=== PATIENT | male | born 1990 | race Caucasian/White ===

== ENCOUNTER 2019-12-05 14:12 | Emergency (ER) | payer OTHER ==
--- NOTE | 2019-12-05 15:31 | UC ---
FLU HPI - HPI Summary HPI Summary: Patient presents to urgent care with 36 hours of body aches, congestion, cough with yellow to brown sputum, congestion, sore throat. Patient also with nausea but no vomiting. Patient did have one episode of diarrhea. Patient did not get the flu vaccine this year. Patient denies sick contacts. Patient works in construction both inside and outside. Patient is not immunocompromised. Patient does not smoke or catrachito. Patient medications and entered in the EMR by the triage nurse reviewed this visit. 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 Onset/Duration: Gradual Onset Severity Currently: Mild Severity Initially: Mild Pain Scale Used: 0-10 Numeric - Allergy/Home Medications Allergies/Adverse Reactions: Allergies Allergy/AdvReac Type Severity Reaction Status Date / Time No Known Allergies Allergy Verified 12/05/19 15:30 Home Medications: Home Medications Acetaminophen [Tylenol Extra Strength] 1 tab PO ONCE 12/05/19 [History Confirmed 12/05/19] Albuterol HFA INHALER* [Ventolin HFA Inhaler*] 2 puff INH Q4H PRN #1 mdi [Rx] Dm/PE/Acetaminophen/Chlorphenr [[place]ha-[place] Plus Cld-Cough Cp] 1 dose PO ONCE 12/05/19 [History Confirmed 12/05/19] Oseltamivir Phosphate [Tamiflu] 75 mg PO BID #10 capsule 12/05/19 [Rx] PMH/Surg Hx/FS Hx/Imm Hx Previously Healthy: Yes - Surgical History Surgical History: None - Family History Known Family History: Positive: Non-Contributory - Social History Occupation: Employed Full-time Lives: With Family Alcohol Use: Rare Substance Use Type: None - Immunization History Most Recent Tetanus Shot: 12/08/12 Review of Systems All Other Systems Reviewed And Are Negative: Yes Constitutional: Positive: Fever Skin: Positive: Negative ENT: Positive: Nasal Discharge, Sinus Congestion, Sinus Pain/Tenderness Respiratory: Positive: Cough Cardiovascular: Positive: Negative Gastrointestinal: Positive: Diarrhea, Nausea Genitourinary: Positive: Negative Motor: Positive: Negative Physical Exam - Summary Physical Exam Summary: Vital Signs Reviewed: Yes A+Ox3, congested Eyes: Conjunctiva Clear, TALA. EOM intact and full ENT: Hearing grossly normal TM x 2 clear, turbinates inflammed and boggy, + PND , mmoist, uvula midline, no exudate, no erythema Neck: Positive: Supple, no LA Respiratory: Positive: No respiratory distress, No accessory muscle use + CTA throughout no w/r, mild intermittent cough Cardiovascular: RRR nl s1, s2 no m/r CBT <2 sec abd soft + BS nt/nd no guarding, no distension Musculoskeletal Exam: CARPENTER x 4 without difficulty Strength Intact, ROM Intact Neurological: Positive: Alert, + sensation throughout Psychological: Positive: Normal Response To examiner Skin: Positive: no rash, no ecchymosis Triage Information Reviewed: Yes Flu Course/Dx - Course Course Of Treatment: Patient presented to urgent care 3 hours of progressive congestion, mild headache, cough with brown sputum, body aches. Patient has acute temperature last night for which he took Tylenol. Patient's taken some [id number] symptomatic medication. Patient at the flu vaccine. Otherwise. On exam vital signs reviewed. Patient does have some congestion postnasal drip and a mild cough. Patient is nontoxic appearing. Patient's insulin is positive. We'll start Tamiflu. Secretion percussion. Motrin Tylenol. Hydrate. Return precautions. Work note. Patient's spouse comfortable and agreeable with plan. - Differential Dx/Diagnosis Provider Diagnosis: Influenza Discharge ED - Sign-Out/Discharge Documenting (check all that apply): Patient Departure All imaging exams completed and their final reports reviewed: No Studies - Discharge Plan Condition: Stable Disposition: HOME Prescriptions: Albuterol HFA INHALER* [Ventolin HFA Inhaler*] 2 puff INH Q4H PRN #1 mdi PRN Reason: wheeze Oseltamivir Phosphate [Tamiflu] 75 mg PO BID #10 capsule Patient Education Materials: Influenza (ED) Forms: *Work Release Referrals: [facility] [place] [facility] [Outside] No Primary Care Phys,NOPCP [Primary Care Provider] - Additional Instructions: - Stay well hydrated. Drink plenty of non-alcoholic, non-caffinated beverages. - Take Tamiflu as prescribed - Alternate ibuprofen (Advil, Motrin) 600mg and Tylenol 1000mg every 3 hours for pain or fever. Take with food. Do NOT take for more than 4-5 days. - These infections are spread by secretions - do NOT share eating or drinking utensils - clean items you share with other people such as cell phones, computer mouse, TV remote, computer tablets,etc. Once you start to feel better, change your toothbrush and your pillowcase. - get plenty of restful sleep - Use inhaler as needed for cough or wheeze - humidify the air in the room where you sleep - boil water, run a hot steam shower, vaporizer, cups of water by heat register - okay to take over the counter decongestant and cough medication - contact your doctor or return with questions or concerns - Billing Disposition and Condition Condition: STABLE Disposition: Home
[2019-12-05 15:35] VITALS: BP 137/72
[2019-12-05 15:46] LABS: Influenza A Molecular POSITIVE (Negative)
== END 2019-12-05 16:14 | disposition home or self-care (01) ==
LOC: UCCORT 14:12
DX: J11.1 Influenza due to unidentified influenza virus with other respiratory manifestations (principal); R19.7 Diarrhea, unspecified; R11.0 Nausea
CPT/HCPCS: 99202; G0463